=== PATIENT | male | born 1955 | race Caucasian/White ===

== ENCOUNTER 2020-09-21 08:18 | Emergency (ER) | payer OTHER ==
[~2020-09-21] VITALS: Ht 188 cm; Wt 113.4 kg
[2020-09-21 08:24] VITALS: BP 150/70
[2020-09-21] MEDS ORDERED: TETANUS-DIPTH-ACEL PERTUSSIS 0.5ML SYR Tdap IM ONE (09:00)
[2020-09-21] MEDS ORDERED: cefTRIAXone SOD 1,000 MG VL IM ONE (09:00)
[2020-09-21] MEDS ORDERED: ACETAMINOPHEN 500 MG TAB PO ONE (09:00)
[2020-09-21] MEDS ORDERED: LIDOCAINE 1% HCL (LOCAL ANESTH.) INJ 20ML MDV IJ ONE (09:15)
== END 2020-09-21 09:33 | disposition home or self-care (01) ==
LOC: EDBD 08:18 → ER 08:18
DX: S80.812A Abrasion, left lower leg, initial encounter (principal); Z23 Encounter for immunization; W54.0XXA Bitten by dog, initial encounter; Y93.89 Activity, other specified; Y92.89 Other specified places as the place of occurrence of the external cause; Y99.8 Other external cause status
CPT/HCPCS: 73590; 90471; 90715; 96372; 99284; J0696; J2001